=== PATIENT | female | born 2000 | race Caucasian/White ===

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

== ENCOUNTER → 2020-09-30 | Outpatient (CLI) | payer BC | LOC: MRI 09:50 | DX: G35 Multiple sclerosis (principal); E34.8 Other specified endocrine disorders; R90.89 Other abnormal findings on diagnostic imaging of central nervous system | CPT/HCPCS: 70553; A9577 ==

== ENCOUNTER → 2020-11-08 | Outpatient (CLI) | payer BC ==
[2020-11-08 14:03] LABS: GAMMA GLUTAMYL TRANSPEPTIDASE 43 U/L (7-64)
== END ==
LOC: LAB 12:57
PROVIDERS: Dermatology
DX: L70.9 Acne, unspecified (principal)
CPT/HCPCS: 36415; 82465; 82977; 84478; 84702; 84703

== ENCOUNTER 2020-11-14 19:03 | Emergency (ER) | payer BC ==
[2020-11-14 19:39] LABS: HEMOGLOBIN 11.8 gm/dl (12.3-15.3); RED BLOOD COUNT 4.56 M/UL (4.00-5.10); WHITE BLOOD COUNT 13.1 K/UL (4.5-11.0)
[2020-11-14 20:01] LABS: BUN/CREATININE RATIO 8 (0-10)
== END 2020-11-15 00:03 | disposition left against medical advice (07) ==
LOC: ER1 19:03 → CDU 23:20 → ER1 23:20
PROVIDERS: Emergency Medicine
DX: R00.0 Tachycardia, unspecified (principal); E87.2 Acidosis; T36.8X5A Adverse effect of other systemic antibiotics, initial encounter; Z88.2 Allergy status to sulfonamides; Z88.1 Allergy status to other antibiotic agents
CPT/HCPCS: 0240U; 71045; 80053; 81001; 83605; 83690; 83735; 84703; 85025; 93005; 96365; 96367; 96375; 99285; J0696; J1200; J2930; J3475

== ENCOUNTER 2021-05-13 19:30 | Emergency (ER) | payer BC ==
[~2021-05-13] VITALS: Ht 160 cm; Wt 86.2 kg
== END 2021-05-13 22:20 | disposition home or self-care (01) ==
LOC: ER1 19:30
DX: Z23 Encounter for immunization (principal); U07.1 COVID-19; J12.82 Pneumonia due to coronavirus disease 2019; Z88.2 Allergy status to sulfonamides
CPT/HCPCS: 99284; M0243